=== PATIENT | female | born 1955 ===

== ENCOUNTER → 2018-09-15 20:56 | Outpatient (REF) | payer OTHER, MEDICAID, SELFPAY ==
[2018-09-15 21:59] LABS: Erythrocyte Sedimentation Rate 8 MM/HR (0-20)
== END ==
LOC: LAB 20:56
PROVIDERS: Visit Provider Naturopath
DX: R79.82 Elevated C-reactive protein (CRP) (principal)
CPT/HCPCS: 36415; 85651; 87624; 88175